=== PATIENT | male | born 1950 | race Caucasian/White ===

== ENCOUNTER 2018-05-05 15:59 | Observation (INO) | payer MEDICARE, OTHER ==
[~2018-05-05] VITALS: Ht 177.8 cm; Wt 88.5 kg
[~2018-05-05 15:59] MED LIST: CRESTOR5 MG PO; DOXY20TA5 PO; METF500T16 PO
[2018-05-05] MEDS ORDERED: IV NORMAL SALINE 1,000ML 1,000 ML IV SCH (16:14)
[2018-05-05 16:30] LABS: BASO # 0.1 x10^3/uL (0.0-0.2); BASO % 1 % (0-3); EOS % 0 % (0-3); HEMATOCRIT 49.6 % (39.0-53.0); HEMOGLOBIN 16.9 g/dL (13.0-17.5); LYMPH # 2.6 x10^3/uL (1.0-4.8); LYMPH % 24 % (24-48); MEAN CORPUSCULAR HEMOGLOBIN 30 pg (25-35); MEAN CORPUSCULAR HGB CONC 34 g/dL (31-37); MEAN CORPUSCULAR VOLUME 88 fL (79-100); MONO # 0.9 x10^3/uL (0.0-1.1); MONO % 8 % (0-9); NEUT # 7.2 x10^3uL (1.8-7.7); NEUT % 67 % (31-73); PLATELET COUNT 238 x10^3/uL (140-400); RED BLOOD COUNT 5.62 x10^6/uL (4.30-5.70); RED CELL DISTRIBUTION WIDTH 14.7 % (11.5-14.5); WHITE BLOOD COUNT 10.9 x10^3/uL (4.0-11.0)
--- NOTE | 2018-05-05 16:47 | RAD ---
CT head without contrast HISTORY: Severe headache and vomiting. PQRS statement: CT scans at this facility use dose reduction including either automated exposure control, iterative reconstructions, and /or weight based radiation dosing via mA and kV modification when appropriate to reduce radiation dose to as low as reasonably achievable. TECHNIQUE: [address] imaging skull base to vertex. FINDINGS: Mild generalized brain atrophy. Dense ossification of the anterior falx cerebri. No intracranial hemorrhage, mass, hydrocephalus or infarction. No acute ischemic changes. Imaged orbits, paranasal sinuses, mastoids and bones are unremarkable. IMPRESSION: No acute intracranial CT abnormality. Electronically signed by: Олег Hernandez MD (05/05/2018 4:43 PM) [facility] [place]
[2018-05-05 17:05] LABS: ALBUMIN 3.3 g/dL (3.4-5.0); ALBUMIN/GLOBULIN RATIO 0.7 (1.0-1.7); CALCIUM 9.2 mg/dL (8.5-10.1); CREATININE 0.9 mg/dL (0.7-1.3); GFR 84.4; MAGNESIUM 1.8 mg/dL (1.8-2.4); POTASSIUM 3.5 mmol/L (3.5-5.1); TOTAL BILIRUBIN 1.3 mg/dL (0.2-1.0); TOTAL PROTEIN 7.8 g/dL (6.4-8.2)
[2018-05-05] MEDS ORDERED: ONDANSETRON PF 4 MG/2 ML VIAL. IV ONE (17:15)
--- NOTE | 2018-05-05 17:24 | EKG ---
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
--- NOTE | 2018-05-05 17:37 | PHYS DOC ---
Past History Past Medical History: Diabetes Smoking: Non-smoker Alcohol Use: Occasionally Drug Use: None Adult General Chief Complaint Chief Complaint: headache, nausea and vomiting [facility] HPI Patient is a 67 year old male who presents with complaining of headache and nausea and vomiting. Patient complaining of sudden onset of frontal headache since yesterday morning as a constant and severe pain with 3 episodes of vomiting and generalized weakness without fever and chills and focal neurodeficit. Patient had constant nausea with continuing headache today and did not talk his usual according to his complaining of blurred vision. Patient denies cough and congestion, sore throat, nasal discharge, abdominal pain, chest pain, palpitation, urinary symptoms. Patient keeps his eyes closed and answered the questions very brief and most of the history was taking from his . Review of Systems Review of Systems Constitutional: Denies fever or chills [] Eyes: Denies change in visual acuity, redness, or eye pain [] HENT: Denies nasal congestion or sore throat [] Respiratory: Denies cough or shortness of breath [] Cardiovascular: No additional information not addressed in HPI [] GI: Denies abdominal pain, bloody stools or diarrhea , reports nausea and vomiting.[] : Denies dysuria or hematuria [] Musculoskeletal: Denies back pain or joint pain [] Integument: Denies rash or skin lesions [] Neurologic: Reports headache, denies focal weakness or sensory changes [] Endocrine: Denies polyuria or polydipsia [] All other systems were reviewed and found to be within normal limits, except as documented in this note. Current Medications Current Medications Current Medications Medications (Trade) Dose Ordered Sig/[facility] Start Time Stop Time Status Last Admin Dose Admin Fentanyl Citrate (Fentanyl 2ml Vial) 50 mcg 1X ONCE 05/05/18 17:15 05/05/18 17:16 DC Ondansetron HCl (Zofran) 4 mg 1X ONCE 05/05/18 17:15 05/05/18 17:16 DC Sodium Chloride 1,000 ml @ 1,000 mls/hr Q1H 05/05/18 16:14 05/05/18 17:13 DC 05/05/18 16:14 1,000 MLS/HR Allergies Allergies Allergies Coded Allergies Type Severity Reaction Last Updated Verified No Known Drug Allergies 10/10/14 No Physical Exam Physical Exam Constitutional: Well nourished, moderate acute distress, non-toxic appearance, afebrile. [] HENT: Normocephalic, atraumatic, bilateral external ears normal, oropharynx moist, no oral exudates, nose normal. [] Eyes: PERRLA, EOMI, conjunctiva normal, no discharge. [] Neck: Normal range of motion, no tenderness, supple, no stridor. [] Cardiovascular:Heart rate regular rhythm, no murmur [] Lungs & Thorax: Bilateral breath sounds clear to auscultation [] Abdomen: Bowel sounds normal, soft, no tenderness, no masses, no pulsatile masses. [] Skin: Warm, dry, no erythema, no rash. [] Back: No tenderness, no CVA tenderness. [] Extremities: No tenderness, no cyanosis, no clubbing, ROM intact, no edema. [] Neurologic: Alert and oriented X 3, normal motor function, normal sensory function, no focal deficits noted. [] Psychologic: Unable to evaluate Current Patient Data Lab Results Laboratory Tests Test 05/05/18 16:15 White Blood Count 10.9 x10^3/uL (4.0-11.0) Red Blood Count 5.62 x10^6/uL (4.30-5.70) Hemoglobin 16.9 g/dL (13.0-17.5) Hematocrit 49.6 % (39.0-53.0) Mean Corpuscular Volume 88 fL (79-100) Mean Corpuscular Hemoglobin 30 pg (25-35) Mean Corpuscular Hemoglobin Concent 34 g/dL (31-37) Red Cell Distribution Width 14.7 % (11.5-14.5) H Platelet Count 238 x10^3/uL (140-400) Neutrophils (%) (Auto) 67 % (31-73) Lymphocytes (%) (Auto) 24 % (24-48) Monocytes (%) (Auto) 8 % (0-9) Eosinophils (%) (Auto) 0 % (0-3) Basophils (%) (Auto) 1 % (0-3) Neutrophils # (Auto) 7.2 x10^3uL (1.8-7.7) Lymphocytes # (Auto) 2.6 x10^3/uL (1.0-4.8) Monocytes # (Auto) 0.9 x10^3/uL (0.0-1.1) Eosinophils # (Auto) 0.0 x10^3/uL (0.0-0.7) Basophils # (Auto) 0.1 x10^3/uL (0.0-0.2) Prothrombin Time 9.9 SEC (9.4-11.4) Prothrombin Time INR 1.0 (0.9-1.1) PTT 24 SEC (23-33) Sodium Level 133 mmol/L (136-145) L Potassium Level 3.5 mmol/L (3.5-5.1) Chloride Level 97 mmol/L (98-107) L Carbon Dioxide Level 26 mmol/L (21-32) Anion Gap 10 (6-14) Blood Urea Nitrogen 7 mg/dL (8-26) L Creatinine 0.9 mg/dL (0.7-1.3) Estimated GFR (Cockcroft-Gault) 84.4 BUN/Creatinine Ratio 8 (6-20) Glucose Level 216 mg/dL (70-99) H Calcium Level 9.2 mg/dL (8.5-10.1) Magnesium Level 1.8 mg/dL (1.8-2.4) Total Bilirubin 1.3 mg/dL (0.2-1.0) H Aspartate Amino Transferase (AST) 17 U/L (15-37) Alanine Aminotransferase (ALT) 21 U/L (16-63) Alkaline Phosphatase 109 U/L (46-116) Creatine Kinase 58 U/L (39-308) Creatine Kinase MB (Mass) 0.6 ng/mL (0.0-3.6) Creatine Kinase MB Relative Index 1.0 % (0-4) Troponin I Quantitative < 0.017 ng/mL (0-0.055) ZZ-Cjj-I-Type Natriuretic Peptide 54 pg/mL (0-124) Total Protein 7.8 g/dL (6.4-8.2) Albumin 3.3 g/dL (3.4-5.0) L Albumin/Globulin Ratio 0.7 (1.0-1.7) L Lipase 90 U/L (73-393) EKG EKG EKG interpreted by me. EKG at 1651 showed normal sinus rhythm at rate of 71, leftward axis, poor R-wave progress in anteroseptal leads, no acute ST and T- wave abnormalities. Radiology/Procedures Radiology/Procedures [address] [id number] IMAGING REPORT Signed PATIENT: ELLY ALDANA ACCOUNT: [id number] : 1950 LOCATION: ER AGE: 67 SEX: M EXAM STATUS: PRE ER ORD. PHYSICIAN: GILBERT RICHMOND MD REASON: Severe headache and vomiting PROCEDURE: CT HEAD WO CONTRAST CT head without contrast HISTORY: Severe headache and vomiting. PQRS statement: CT scans at this facility use dose reduction including either automated exposure control, iterative reconstructions, and /or weight based radiation dosing via mA and kV modification when appropriate to reduce radiation dose to as low as reasonably achievable. TECHNIQUE: [address] imaging skull base to vertex. FINDINGS: Mild generalized brain atrophy. Dense ossification of the anterior falx cerebri. No intracranial hemorrhage, mass, hydrocephalus or infarction. No acute ischemic changes. Imaged orbits, paranasal sinuses, mastoids and bones are unremarkable. IMPRESSION: No acute intracranial CT abnormality. Electronically signed by: Clarisa Hernandez MD (05/05/2018 4:43 PM) [facility] [place] DICTATED AND SIGNED BY: CLARISA HERNANDEZ MD DATE: 05/05/18 1640 CC: GILBRET RICHMOND MD; GAVIN DIXON MD ~ Chest x-ray interpreted by me and did not show acute cardiopulmonary problem. Course & Med Decision Making Course & Med Decision Making Pertinent Labs and Imaging studies reviewed. (See chart for details) Evaluation of patient in ER showed 67-year-old male patient with history of diabetes and complaining of sudden onset of headache since yesterday with nausea and vomiting. Patient kept eyes closed and barely was talking but after treatment with fentanyl and IV fluid and Zofran and felt better and give more history. ct head was unremarkable. Dr. Tolliver accepted admission at 1722. Dragon Disclaimer Dragon Disclaimer This electronic medical record was generated, in whole or in part, using a voice recognition dictation system. Departure Departure: Impression: Primary Impression: Headache Additional Impressions: Nausea and vomiting Generalized weakness Uncontrolled diabetes mellitus Disposition: ADMITTED INPATIENT (at 1723) Admitting Physician: Krishna Tolliver (Dr. Tolliver accepted admission at 1722 ) Condition: IMPROVED Referrals: GAVIN DIXON MD (PCP) NIHSS - ED NIH Stroke Scale: NIH Stroke Scale Response (Comments) Value Level of Consciousness: 0 Alert/Responsive 0 LOC Questions: 0 Answers both correctly 0 LOC Commands: 0 Performs both tasks 0 Best Gaze: 0 Normal 0 Visual: 0 No visual loss 0 Facial Palsy: 0 Normal, symmetrical 0 Motor - Left Arm 0 No drift 0 Motor - Right Arm 0 No drift 0 Motor - Left Leg 0 No drift 0 Motor: Right Leg 0 No drift 0 Limb Ataxia: 0 Absent 0 Sensory: 0 No loss 0 Dysathria: 0 Normal 0 Extinction and Inattention: 0 Normal 0 Total 0 Critical Care Time Critical care time was 60 minutes exclusive of procedures. Problem Qualifiers GILBERT RICHMOND MD May 05, 2018 17:37
[2018-05-05 18:02] LABS: BACTERIA,URINE 0 /HPF (0-FEW); BILIRUBIN,URINE NEG (NEG); CLARITY,URINE CLEAR; COLOR,URINE YELLOW; GLUCOSE,URINE NEG (NEG); NITRITE,URINE NEG (NEG); RBC,URINE 0 /HPF (0-2); UROBILINOGEN,URINE 0.2 mg/dL (0.2 mg/dL); WBC,URINE 0 /HPF (0-4)
[2018-05-05 19:10] VITALS: BP 145/79
[2018-05-05] MEDS ORDERED: DEXTROSE 50% 25 GM / 50ML DISP.SYRIN. IV PRN (20:15)
[2018-05-05] MEDS ORDERED: BUTALB/APAP/CAFEIN 50/325/40MG TABLET. PO PRN (20:30)
[2018-05-05] MEDS ORDERED: POTASSIUM CHLORIDE 30 MEQ in IV 1/2 NORMAL SALINE 1,000 ML IV SCH (20:30)
[2018-05-05] MEDS ORDERED: ONDANSETRON ODT 4 MG TAB.RAPDIS PO PRN (20:30)
[2018-05-05] MEDS ORDERED: ANTI-COAG MONITOR BY PHARMACY. MC PRN (20:45)
[2018-05-05] MEDS ORDERED: ASPIRIN 81 MG TAB.CHEW PO SCH (21:00)
[2018-05-05] MEDS ORDERED: ATORVASTATIN CALCIUM 20 MG TABLET PO SCH (21:00)
[2018-05-05] MEDS ORDERED: DOXYCYCLINE HYCLATE 100 MG TABLET PO SCH (21:00)
[2018-05-05] MEDS ORDERED: traZODone 50 MG TABLET. PO SCH (21:00)
[2018-05-05] MEDS ORDERED: traZODone 50 MG TABLET. PO PRN (21:00)
[2018-05-05] MEDS: APIXABAN 5 MG TABLET. PO SCH (21:21)
[2018-05-05] MEDS: IV 1/2 NORMAL SALINE 1,000 ML IV SCH (22:21)
[2018-05-05 22:41] VITALS: BP 136/76
[2018-05-06] MEDS ORDERED: BUDE9TAB PO (03:43)
[2018-05-06] MEDS ORDERED: METF500T9 PO (03:43)
[2018-05-06] MEDS ORDERED: AZAT50TA PO (03:44)
[2018-05-06 03:45] LABS: BACTERIA,URINE 0 /HPF (0-FEW); BILIRUBIN,URINE NEG (NEG); CLARITY,URINE CLEAR; COLOR,URINE STRAW; GLUCOSE,URINE NEG (NEG); NITRITE,URINE NEG (NEG); RBC,URINE 0 /HPF (0-2); SQUAMOUS EPITHELIAL CELL,UR OCC /LPF; UROBILINOGEN,URINE 0.2 mg/dL (0.2 mg/dL); WBC,URINE 0 /HPF (0-4)
[2018-05-06] MEDS ORDERED: MESA1.2T PO (03:47)
[2018-05-06] MEDS ORDERED: INSU100I30 SQ (03:48)
[2018-05-06] MEDS ORDERED: SIMV20TA3 PO (03:48)
[2018-05-06 05:40] VITALS: BP 127/80
[2018-05-06] MEDS: IV 1/2 NORMAL SALINE 1,000 ML IV SCH (07:00)
[2018-05-06 07:32] LABS: BASO % 1 % (0-3); EOS # 0.1 x10^3/uL (0.0-0.7); EOS % 1 % (0-3); HEMATOCRIT 47.6 % (39.0-53.0); HEMOGLOBIN 16.1 g/dL (13.0-17.5); LYMPH % 36 % (24-48); MEAN CORPUSCULAR HEMOGLOBIN 30 pg (25-35); MEAN CORPUSCULAR HGB CONC 34 g/dL (31-37); MEAN CORPUSCULAR VOLUME 89 fL (79-100); MONO # 0.8 x10^3/uL (0.0-1.1); MONO % 10 % (0-9); NEUT # 4.3 x10^3uL (1.8-7.7); NEUT % 52 % (31-73); PLATELET COUNT 229 x10^3/uL (140-400); RED BLOOD COUNT 5.33 x10^6/uL (4.30-5.70); RED CELL DISTRIBUTION WIDTH 14.6 % (11.5-14.5); WHITE BLOOD COUNT 8.1 x10^3/uL (4.0-11.0)
[2018-05-06 07:42] LABS: CALCIUM 8.9 mg/dL (8.5-10.1); CREATININE 0.8 mg/dL (0.7-1.3); GFR 96.7; POTASSIUM 3.4 mmol/L (3.5-5.1)
--- NOTE | 2018-05-06 07:42 | RAD ---
Indication:Nausea, severe headache, dizziness TECHNIQUE:Portable AP chest X-ray COMPARISON: None FINDINGS: Heart is normal in size. Lungs are clear. No pneumothorax or pleural effusion. Visualized bony thorax within normal limits. IMPRESSION: No acute pulmonary process. Electronically signed by: Quinten Bueno DO (05/06/2018 7:37 AM) [facility]
[2018-05-06] MEDS ORDERED: metFORMIN 500 MG TABLET PO SCH (08:00)
[2018-05-06] MEDS ORDERED: INSULIN LISPRO 300 UNITS/3 ML INSULN.PEN. SQ SCH (08:00)
[2018-05-06] MEDS ORDERED: IOHEXOL 350 MG/ML 100 ML VIAL. IV ONE (08:30)
--- NOTE | 2018-05-06 08:54 | RAD ---
PQRS Compliance statement: One or more of the following individualized dose reduction techniques were utilized for this examination: 1. Automated exposure control. 2. Adjustment of the mA and/or kV according to patient size. 3. Use of iterative reconstruction technique. Indication:Positive d-dimer. TECHNIQUE: CT angiogram chest with IV contrast with multiplanar MIP reformats. COMPARISON:None FINDINGS: Suboptimal PE study due to contrast bolus timing. No central or proximal segmental filling defects in the pulmonary arteries. Dilatation of distal segmental and subsegmental pulmonary arteries is limited. Heart is normal in size. No pericardial or pleural effusion. No enlarged chest lymph nodes. Central airways are patent. Visualized sections through the liver, spleen, pancreas, adrenals and kidneys within normal limits. Gallstones noted. No pericholecystic fluid. No suspicious bony lesion. IMPRESSION: 1. Slightly suboptimal PE study for evaluation of distal segmental and subsegmental pulmonary arteries. No central or proximal segmental PE. 2. No pneumonia or imaging evidence of pulmonary infarct. 3. Cholelithiasis without imaging evidence of acute cholecystitis. Electronically signed by: Quinten Bueno DO (05/06/2018 8:49 AM) [facility]
[2018-05-06] MEDS ORDERED: ELECTROLYTE (ICU) PROTOCOL. MC PRN (09:30)
[2018-05-06 10:59] VITALS: BP 118/66
[2018-05-06] MEDS: APIXABAN 5 MG TABLET. PO SCH (11:03)
--- NOTE | 2018-05-06 12:47 | RAD ---
DOPPLER CAROTID BILAT Clinical Indication: Slurred speech. Procedure: Pulsed wave and color-flow duplex imaging was utilized to evaluate the extracranial carotid arteries. Comparison: None. Findings: RIGHT SIDE: Mild atherosclerotic plaque on rodriguez-scale images. Distal CCA peak systolic velocity 82 cm/sec. ICA peak systolic velocity 67 cm/sec. The right ICA/CCA ratio is 0.8. Flow within the right vertebral artery and right ECA is directed antegrade. LEFT SIDE: Mild atherosclerotic plaque on rodriguez-scale images. Distal CCA peak systolic velocity 75 cm/sec. ICA peak systolic velocity 72 cm/sec. The left ICA/CCA ratio is 1. Flow within the left vertebral artery and left ECA is directed antegrade. Carotid legend: CCA = common carotid artery ICA = internal carotid artery ECA = external carotid artery IMPRESSION: No hemodynamically significant stenosis. Electronically signed by: Quinten Bueno DO (05/06/2018 12:43 PM) [facility]
--- NOTE | 2018-05-06 14:40 | DS ---
DATE OF DISCHARGE: HOSPITAL COURSE: The patient is a 67-year-old male with a history of diabetes and colitis, came in through the Emergency Room where he was seen with a severe headache with nausea and vomiting. Apparently, he had immunizations done 2 or 3 days before admission, but had no problems there and then one day prior to admission, began to have severe nausea, stopped, was unable to really eat or drink much. He began to have 3 episodes of vomiting, generalized weakness. The patient did come and had some problems with scanning for words as well as some blurred vision. He denied chest pain, abdominal pain. Denies any problems with palpitations or other symptoms, except for this extreme migrainous-like headache or felt like the top of his head was going to as he said "blow off." As a result of this, the patient was admitted to the hospital for further evaluation of the possibility of a possible TIA versus some other pathology. The patient had noted he had been drinking several cups of teas as usual, but was unable to do that starting the day prior to admission. He was admitted, extensive workup was performed. CT of the head was completely normal. Chest x-ray was completely normal. He did have a slight elevated D-dimer, so CTA was performed, negative PE, but does have some cholelithiasis without acute cholecystitis. Carotid Dopplers were all within normal range. The patient otherwise made excellent progress. He was given Fioricet, which seemed to help relieve his pain very quickly and then after his scans were done and his nausea has subsided, we were able to give him his usual hot tea and that really finally cleared everything for him. He did have elevated cholesterol of 201 with a HDL of only 32 and LDL of 143. He is on Zocor. His blood sugars ranged in the 160s to 130s and a slightly low potassium of 3.4. Other labs were given to the patient, take home ____, the patient made excellent progress. He is eating full meals by the time of his discharge. He is to follow up with his primary care provider. IMPRESSION AND PLAN: Migrainous headache, intractable, probably secondary to caffeine withdrawal, TIA like symptoms, possibly related to the caffeine withdrawal, although obviously high risk with his history of diabetes. The patient will follow up as noted with his primary care. He will be on a diabetic diet. See MRAD. Impression is indicated above. He probably could take a baby aspirin a couple times a week if anything and then further evaluation by his primary care physician. EMILY SY MD DR: FLAVIO/dylan JOB#: [id number] / [id number]
--- NOTE | 2018-05-06 17:42 | HP ---
ADMIT DATE: 05/05/2018 HISTORY OF PRESENT ILLNESS: A 67-year-old male came in through the Emergency Room with severe unrelenting headache where he felt like the top of his head was going to blow off. The patient was seen down in the Emergency Room; initially, it was primarily frontal part, but also on the top of his headache, he noted the pain was like a 10/10. He has also had vomiting episodes x 3, generalized weakness. No other neurological symptoms. Denied chest pain, abdominal pain, denied any palpitations or other symptoms per se. He did have some mild problems talking to his and blurred vision. He was admitted for further evaluation of his severe new onset of headache along with some of his nausea and vomiting. PAST MEDICAL HISTORY: As indicated colitis, type 2 diabetes, recently had influenza and Prevnar vaccinations, but no problems there. ALLERGIES: No known drug allergies. MEDICATIONS: Include that of Zocor 20 mg a day, mesalamine 1.2 g 4 tablets daily, budesonide 9 mg daily, metformin, insulin Tresiba 33 units subcutaneously daily. He is on ____ 50 mg 2 tablets p.o. daily. FAMILY HISTORY: Unremarkable. SOCIAL HISTORY: The patient denies smoking, alcohol or drug use. Full code. The patient's immunizations is up-to-date. REVIEW OF SYSTEMS: As noted with a headache, some mild double vision and trouble with finding or scanning for words. Otherwise, denies chest pain, shortness of breath. Denies abdominal pain. Denies any melena, hematochezia, or hematemesis. Neurologically stable except for the severity of the headache and the scanning of words and possibly some mild blurred vision. PHYSICAL EXAMINATION: GENERAL: The patient otherwise is a pleasant white male, fair amount of pain, very uncomfortable with the headache. VITAL SIGNS: Blood pressure 145/80, respiratory rate 18, pulse 74, afebrile, oxygen saturation 96%. HEENT: The patient's head was atraumatic, normocephalic. Eyes: PERRLA without jaundice. Mouth and throat were normal. NECK: Supple, no JVD, carotid bruits or thyromegaly. LUNGS: Clear to auscultation. CARDIOVASCULAR: Regular sinus rhythm. ABDOMEN: Soft, nontender. No rebound, no guarding. Positive bowel sounds, no hepatosplenomegaly was noted. EXTREMITIES: No clubbing, cyanosis or edema. NEUROLOGIC: The patient was alert and oriented x 3. His speech was fluent, spontaneous, appropriate. Cranial nerves 2-12 are grossly intact. IMPRESSION: A migrainous type headache, intractable without aura, nausea, vomiting, possible mild dehydration, history of colitis, blurred vision, type 2 diabetes, hypercholesterolemia, positive D-dimer of 0.64. The patient was admitted. Further workup is indicated. We will get a CTA as well as a CT head. Other labs are pending. Make further evaluation could be from caffeine withdrawal as he has been having problems taking his usual ____ apparently throughout the day. We will continue to monitor carefully for any of new changes and his neurological or other systems. EMILY SY MD DR: FLAVIO/dylan JOB#: [id number] / [id number]
[2018-05-06 23:12] LABS: HEMOGLOBIN A1C 9.9 % (4.8-5.6)
[2018-05-07] MEDS ORDERED: INSULIN GLARGINE 300 UNITS/3 ML INSULN.PEN. SQ SCH (09:00)
[2018-05-07] MEDS ORDERED: azaTHIOprine 50 MG TABLET PO SCH (09:00)
[2018-05-07] MEDS ORDERED: MESALAMINE 1.2 GM TABLET.DR PO SCH (09:00)
[2018-05-07] MEDS ORDERED: BUDESONIDE 3 MG CAP.ER.24H. PO SCH (09:00)
[2018-05-08] MEDS ORDERED: metFORMIN 500 MG TABLET PO SCH (08:00)
== END 2018-05-06 14:05 | disposition home or self-care (01) ==
LOC: ER 15:59 → INTOOBSV 19:03 → 1 SOUTH 19:03
PROVIDERS: ADMIT Family Medicine; ATTEND Family Medicine
DX: G43.909 Migraine, unspecified, not intractable, without status migrainosus (principal); E11.65 Type 2 diabetes mellitus with hyperglycemia; E78.00 Pure hypercholesterolemia, unspecified; Z79.899 Other long term (current) drug therapy
CPT/HCPCS: 36415; 70450; 71045; 71275; 80048; 80053; 80061; 81001; 82553; 82947; 83036; 83690; 83735; 83880; 84443; 84484; 85025; 85379; 85610; 85651; 85730; 93005; 93880; 96360; 96361; 99284; G0378; J7030; G0379; J1815